=== PATIENT | male | born 1950 ===

== ENCOUNTER 2019-02-14 10:52 | Day surgery (SDC) | payer MEDICARE, OTHER ==
[~2019-02-14] VITALS: Ht 177.8 cm; Wt 98.9 kg
[~2019-02-14 10:52] MED LIST: Bentyl20 MG PO; CENTRUM SILVER1 EAC1 PO
--- NOTE | 2019-02-14 13:55 | NUR ---
02/14/19 1355 Elke Charles LATE ENTRY FOR TODAY DURING PROCEDURE 3ML ELEVIEW USED TO ELEVATE POSSIBLE POLYP
== END 2019-02-14 13:25 | disposition home or self-care (01) ==
LOC: ORSCSDS 10:52
PROVIDERS: Student in an Organized Health Care Education/Training Program
PROC: 0DBL8ZX Excision of Transverse Colon, Via Natural or Artificial Opening Endoscopic, Diagnostic (ICD-10-PCS; principal; 2019-02-14 12:15)
PROC: 0DBE8ZX Excision of Large Intestine, Via Natural or Artificial Opening Endoscopic, Diagnostic (ICD-10-PCS; principal; 2019-02-14 12:15)
PROC: 3E0H8GC Introduction of Other Therapeutic Substance into Lower GI, Via Natural or Artificial Opening Endoscopic (ICD-10-PCS; principal; 2019-02-14 12:15)
DX: R19.7 Diarrhea, unspecified (principal); Z80.0 Family history of malignant neoplasm of digestive organs; D12.3 Benign neoplasm of transverse colon; K57.30 Diverticulosis of large intestine without perforation or abscess without bleeding; K64.8 Other hemorrhoids; E05.90 Thyrotoxicosis, unspecified without thyrotoxic crisis or storm; Z79.899 Other long term (current) drug therapy
CPT/HCPCS: 88305; J2704; J7120

== ENCOUNTER 2019-09-09 11:50 | Emergency (ER) | payer MEDICARE, OTHER ==
[~2019-09-09] VITALS: Ht 177.8 cm; Wt 91.6 kg
[2019-09-09 12:56] LABS: BASOPHILS ABSOLUTE AUTO 0.03 K/mm3 (0.00-0.23); BASOPHILS PERCENT AUTO 0 % (0-2); EOSINOPHILS ABSOLUTE AUTO 0.03 K/mm3 (0.00-0.68); EOSINOPHILS PERCENT AUTO 0 % (0-6); Hematocrit 46.7 % (37.0-53.0); Hemoglobin 15.1 g/dL (13.5-17.5); IMMATURE GRAN ABSOLUTE AUTO 0.02 K/mm3 (0.00-0.10); IMMATURE GRAN PERCENT AUTO 0 % (0-1); LYMPHOCYTES ABSOLUTE AUTO 1.38 K/mm3 (0.84-5.20); LYMPHOCYTES PERCENT AUTO 19 % (21-46); MONOCYTES ABSOLUTE AUTO 0.74 K/mm3 (0.16-1.47); MONOCYTES PERCENT AUTO 10 % (4-13); Mean Corpuscular HGB 30.3 pg (26.0-34.0); Mean Corpuscular HGB Conc 32.3 g/dL (31.5-36.5); Mean Corpuscular Volume 94 fL (80-100); Mean Platelet Volume 9.8 fL (9.1-12.4); NEUTROPHILS ABSOLUTE AUTO 5.18 K/mm3 (1.96-9.15); NEUTROPHILS PERCENT AUTO 70 % (41-73); Platelet Count 253 K/mm3 (150-400); RDW Standard Deviation 52.2 fL (35.1-46.3); Red Blood Cell Count 4.98 M/mm3 (4.30-5.90); White Blood Cell Count 7.38 K/mm3 (4.00-11.30)
[2019-09-09 13:09] LABS: Source, Urine Clean Catch
[2019-09-09 13:18] LABS: Appearance, Urine Clear (Clear); Blood, Urine Neg (Neg); Color, Urine Yellow (P-Yellow); Glucose Qualitative, Urine Neg (Neg); Ketones, Urine 3+ (Neg); Leukocyte Esterase, Urine Neg (Neg); Nitrite, Urine Neg (Neg); Protein, Urine 2+ (Neg); Specific Gravity, Urine 1.025 (1.003-1.022); Urobilinogen, Urine 1+ (Normal)
[2019-09-09 13:26] LABS: Bilirubin, Urine 3+ (Neg)
[2019-09-09 13:29] LABS: Alanine Aminotransfer (ALT/SGP 59 U/L (12-78); Albumin/Globulin Ratio 0.9 (0.8-1.8); Alk Phos 283 U/L (50-136); Anion Gap 7 mmol/L (6-16); Aspartate Aminotrans (AST/SGOT 43 U/L (12-37); Bilirubin, Total 1.9 mg/dL (0.1-1.0); Blood Urea Nitrogen 16 mg/dL (8-24); Bun/Creatinine Ratio 19.5 (12.0-20.0); CO2, Blood 27 mmol/L (21-32); Calcium, Blood 9.2 mg/dL (8.5-10.1); Chloride, Blood 106 mmol/L (98-108); Creatinine, Blood 0.82 mg/dL (0.60-1.20); Globulin, Blood 3.4 g/dL (2.2-4.0); Glomerular Filtration Rate >60 (60-); Glucose, Blood 83 mg/dL (70-99); Sodium, Blood 140 mmol/L (136-145); Total Protein, Blood 6.4 g/dL (6.4-8.2)
[2019-09-09 13:32] LABS: Bacteria Few /hpf; Calcium Oxalate Crystals Many /hpf; Red Blood Cells, Urine 0-2 /hpf (0-2); Squamous Epithelial Cells Few /hpf (Few); White Blood Cells, Urine 0-2 /hpf (0-5)
[2019-09-09] MEDS ORDERED: LOPE2C PO (15:37)
[2019-09-09 15:59] LABS: Free Thyroxine 1.39 ng/dL (0.70-1.60)
[2019-09-09 16:00] LABS: Thyroid Stimulating Hormone 2.53 uIU/mL (0.360-4.800)
[2019-09-09] MEDS ORDERED: ONDA4ODT MM (18:15)
== END 2019-09-09 18:54 | disposition home or self-care (01) ==
LOC: ER 11:50
PROVIDERS: Emergency Medicine; Physician Assistant
DX: R19.7 Diarrhea, unspecified (principal); C80.1 Malignant (primary) neoplasm, unspecified; C78.7 Secondary malignant neoplasm of liver and intrahepatic bile duct; R19.09 Other intra-abdominal and pelvic swelling, mass and lump; R79.89 Other specified abnormal findings of blood chemistry
CPT/HCPCS: 36415; 70450; 74177; 80053; 81001; 82140; 83690; 84439; 84443; 85025; 99284-25; Q9967

== ENCOUNTER 2019-09-19 08:27 | Day surgery (SDC) | payer MEDICARE, OTHER ==
[~2019-09-19 08:27] MED LIST changes: +LOPE2C PO; +ONDA4ODT MM
--- NOTE | 2019-09-19 11:51 | NUR ---
Discharge instructions reviewed with patient. Patient verbalizes understanding. Copy given to patient to take home. GIVEN TO . PATIENT OUT FOR REPEAT CT SCAN. MAY LEAVE FROM RADIOLOGY. PATIENT DENIES NEW PAIN, NAUSEA, SOB T/O RECOVERY.
--- NOTE | 2019-09-19 12:10 | NUR ---
RECEIVED PHONE CALL FROM RADIOLOGIST. HE REPORTS PATIENT OKAY TO DISCHAGE IF HE WOULD LIKE TO. CLARIFIER BY TO SLICE PLUG CUTTER OPERATOR . PATIENT LEFT FROM RADIOLOGY
== END 2019-09-19 23:13 | disposition home or self-care (01) ==
LOC: CT 08:27
DX: C22.8 Malignant neoplasm of liver, primary, unspecified as to type (principal); Z79.899 Other long term (current) drug therapy
CPT/HCPCS: 47000; 77012; 88307; 88341; 88342